=== PATIENT | male | born 1965 | race Caucasian/White ===

== ENCOUNTER → 2018-10-16 09:42 | Outpatient (POV) | payer BC, SELFPAY | PROVIDERS: Visit Provider Dermatology | DX: Z00.00 Encounter for general adult medical examination without abnormal findings (principal) ==

== ENCOUNTER → 2019-03-29 09:34 | Outpatient (CLI) | payer BC, SELFPAY ==
--- NOTE | 2019-03-29 | CA_ITS ---
APPROVED REPORT Exam: Exercise Treadmill Technologist: Radha Tuttle, Ht: 5 ft 11 in Wt: 180 lbs BSA: 2.02 m2 HR: 65 bpm BP: 131/89 mmHg Rhythm: NSR,VENTRICULAR TRIGEMINY Medical History Medical History: Hyperlipidemia Medications: Lipitor,,,,, BaBY ASA,,,,, Allergies: No known drug allergies Cardiac Risk Factors: Hyperlipidemia, FHX of CAD Stress Test Details Test: Miguel HR Resting HR: 70 bpm Max Heart Rate (APMHR): 165 bpm Max HR Achieved: 179 bpm Target HR (85% APMHR): 140 bpm % of APMHR: 108 BP Resting BP: 131/89 mmHg Max BP: 166/77 mmHg Recovery BP: 166.0/77.0 mmHg ECG Resting ECG: NSR,VENTRICULAR BIGEMINY Clinical Reason for Termination: Dyspnea Exercise duration: 12:01 min Highest Stage Achieved: Exercise capacity: 12.8 METs Stress ECG Conclusion PVC'S,VENTRICULAR BIGEMINY-RECURRENY. VENTRICULAR COUPLETS. PAROXYSMAL SVT. MAX HEART RATE 179 BPM WHICH IS 120% OF PM FOR AGE. METS = 12.8. TEST STOPPED DUE TO LEG PAIN AND SOA. NO CHEST PAIN. PVC'S,VENTRICULAR BIGEMINY,COUPLETS AND PAROXYSMAL SVT. <1.5MM ST SEGMENT. ABNORMAL STRESS TEST. GOOD EXERCISE TOLERANCE. VENTRICULAR ECTOPY ABOVE. Test Summary RECOVERY 02:00 0.0 0.0 114 . . . . REST . . . . . . . Sitting REST 26:27 0.0 0.0 70 . 131/ 89 . . Stage 1 01:00 10.0 1.7 113 . . . . Stage 1 02:00 10.0 1.7 108 . . . . Stage 1 03:00 10.0 1.7 107 . . . . Stage 2 01:00 12.0 2.5 118 . . . . Stage 2 02:00 12.0 2.5 117 . . . . Stage 2 03:00 12.0 2.5 130 . 152/ 90 . . Stage 3 01:00 14.0 3.4 139 . . . . Stage 3 02:00 14.0 3.4 152 . . . . Stage 3 03:00 14.0 3.4 153 . . . . Stage 4 01:00 16.0 4.2 168 . . . . Stage 4 02:00 16.0 4.2 176 . . . . Stage 4 . . . . . . . Stage held Stage 4 03:00 16.0 4.2 179 . . . . Stage 4 . . . . . . . Stage resumed Stage 4 03:01 16.0 4.2 179 . . . Stop exercise at 12:01 RECOVERY 01:00 0.0 0.0 140 . . . . RECOVERY 02:00 0.0 0.0 114 . . . . RECOVERY 03:00 0.0 0.0 98 . 166/ 77 . . RECOVERY 04:00 0.0 0.0 100 . 166/ 77 . . RECOVERY 05:00 0.0 0.0 100 . 166/ 77 . . RECOVERY 06:00 0.0 0.0 99 . 166/ 77 . . RECOVERY 07:00 0.0 0.0 96 . 166/ 77 . . RECOVERY 08:00 0.0 0.0 91 . 166/ 77 . . RECOVERY 09:00 0.0 0.0 96 . 166/ 77 . . RECOVERY 09:15 0.0 0.0 100 . 166/ 77 . . Electronically signed by : Fish Craig, 03/29/2019 15:12:58
== END ==
PROVIDERS: PCP Family Medicine; Visit Provider Family Medicine
DX: R07.9 Chest pain, unspecified (principal); E78.00 Pure hypercholesterolemia, unspecified; Z82.49 Family history of ischemic heart disease and other diseases of the circulatory system
CPT/HCPCS: 93017

== ENCOUNTER → 2019-04-04 11:14 | Outpatient (CLI) | payer BC, SELFPAY | PROVIDERS: PCP Family Medicine; Visit Provider Family Medicine | DX: I47.1 Supraventricular tachycardia (principal); R00.8 Other abnormalities of heart beat | CPT/HCPCS: 93225; 93226 ==

== ENCOUNTER → 2019-04-17 09:31 | Outpatient (CLI) | payer BC, SELFPAY ==
--- NOTE | 2019-04-17 09:38 | CA_ITS ---
APPROVED REPORT EXAM: Comprehensive 2D, Doppler, and color-flow Echocardiogram Supervisor Game Farm: Kassie Barros CRT Ht: 5 ft 11 in Wt: 180lbs BSA: 2.02 BP: 131/89 mmHg Indications: SVT, TRIGEMINY 2D Dimensions LVOT 2.00 cm (M/F) 1.5-2.5 M-Mode Dimensions RVDd 2.60 cm (0.9-2.6) LA Diam 3.90 cm (1.9-4.0) LVDd 4.60 cm (3.5-5.7) Ao Diam 3.20 cm (2.0-3.7) LVDs 3.50 cm (3.5-5.7) AV Cusp 2.20 cm (1.5-2.6) IVSd 1.60 cm (0.6-1.1) PWd 0.60 cm (0.6-1.1) EF (Teich) 47.70% FS 23.90% EDV (Teich) 97.30 mL ESV (Teich) 50.90 mL LV Diastology E/A Ratio 1.60 MED E' 6.14 (< 7 cm/sec) E'/MED E' Ratio 14.40 (>14) LAT E' 9.36 (<10 cm/sec) E/LAT E' Ratio 9.40 (>14) Aortic Valve AoV Peak Chuy. 110.00 (50-130 cm/s) AO Peak GR. 5.00 mmHg Mitral Valve MV E Max Chuy. 88.40 (40-130 cm/s) MV A Velocity 55.80 (40-130 cm/s) E/A Ratio 1.60 Pulmonary Valve PA Accel Time 208.00 (>120 msec) Tricuspid Valve TR P. Velocity 223.00 cm/s RAP Estimate 10.00 mmHg RVSP 30.00 mmHg Left Ventricle Left atrium is normal size, left ventricle is normal size, left ventricle wall thickness is upper limit of the normal, there is preserved left ventricular systolic function, visually estimated ejection fraction 55% with no regional wall motion abnormality. Diastolic parameters are inconclusive. Right Ventricle Right atrium and right ventricular normal size and contractility. Aortic Valve Aortic valve is minimally thickened and fibrosed. Mitral Valve Mitral valve leaflets are minimally thickened, there is no mitral stenosis. There is mild mitral regurgitation. Tricuspid Valve Tricuspid valve is grossly normal, there is mild tricuspid regurgitation. Pulmonic Valve Pulmonic valve is poorly visualized. Great Vessels Aortic root is normal size. Pericardium No significant pericardial effusion noted. Conclusion 1. Left atrium is normal size, left ventricle is normal size, visually estimated ejection fraction 55% with no regional wall motion abnormality, diastolic parameters are inconclusive. 2. Mild mitral and tricuspid regurgitation. 3. No significant pericardial effusion noted. Electronically signed by : Aden Diane, 04/18/2019 13:24:04
== END ==
PROVIDERS: PCP Family Medicine; Visit Provider Family Medicine
DX: I47.1 Supraventricular tachycardia (principal); R00.8 Other abnormalities of heart beat
CPT/HCPCS: 93306

== ENCOUNTER 2019-11-05 11:56 | Emergency (ER) | payer BC, SELFPAY ==
[2019-11-05] VITALS (7 sets, daily range): BP systolic 131–166; BP diastolic 77–93; PULSE 44–87; RESP 12–18; TEMP 36.8; O2SAT 95–99; BMI 24.3
--- NOTE | 2019-11-05 12:00 | HMH.EDGENADL ---
ED Disposition Clinical Impression: Dislocation of left shoulder joint Qualifiers: Encounter type: initial encounter Qualified Code(s): S43.005A - Unspecified dislocation of left shoulder joint, initial encounter Disposition: Home, Self-Care Condition on Discharge: Good Instructions: DI for Shoulder Dislocation, DI for Moderate Sedation Additional Instructions: Sling and swath until orthopedic follow-up. Avoid raising left arm over your head until follow-up. Follow-up with orthopedics this week. Call for appointment. Ice and ibuprofen or Tylenol for pain. Referrals: Fish Aguirre MD [Primary Care Provider] - Aparna Roa MD [Physician] - - Critical Care Critical Care Time: No Attestation: On , the high probability of a clinically significant, sudden or life threatening deterioration of the following system(s) required my full and direct attention, intervention and personal management. The time I documented below is in addition to time spent performing reported procedures but includes the following listed in this critical care notation. Medical Decision Making - Sunny Inquiry Pt receiving controlled substance: Yes Sunny was queried for this patient: No Reason not queried -: Emergent pt cond-no time Risks and benefits of using a controlled substance: were not discussed with pt by me Vital Signs: 11/05/19 11:57 11/05/19 12:49 Pulse Rate [Right Radial] 87 70 Respiratory Rate 18 16 Blood Pressure [Right Arm] 138/82 166/93 H Blood Pressure Mean [Right Arm] 100 117 Blood Pressure Source [Right Arm] Automatic Cuff Blood Pressure Position [Right Arm] Sitting Supine 02 Sat by Pulse Oximetry 98 97 Oxygen Delivery Method Room Air Nasal Cannula Oxygen Flow Rate (LPM) 2 Orders (Tests/Meds): ED MEDICATIONS Discontinued Medications Generic Name Dose Route Start Last Admin Trade Name Freq PRN Reason Stop Dose Admin Hydromorphone HCl 1 mg 11/05/19 12:05 11/05/19 12:11 Dilaudid 2mg/Ml Syringe IV 11/05/19 12:06 1 mg ONCE ONE Administration Hydromorphone HCl 1 mg 11/05/19 12:11 11/05/19 12:12 Dilaudid 2mg/Ml Syringe IV 11/05/19 12:12 1 mg ONCE ONE Administration Ondansetron HCl 4 mg 11/05/19 12:05 11/05/19 12:11 Zofran 4mg/2ml Vial IV 11/05/19 12:06 4 mg ONCE ONE Administration ORDERS Category Date Time Status Shoulder XR left minimum 2 views [XR shoulder LT min 2V Exams 11/05/19 12:47 Taken ] Stat XR shoulder LT min 2V Stat Exams 11/05/19 12:04 Taken - Radiology Data #1 Image(s): Chest, Shoulder Image Reviewed: Yes I reviewed the patient's radiology image Chest: Left shoulder dislocation, otherwise negative, no pneumothorax Left shoulder: Anterior dislocation. Left shoulder postreduction: Nonunited ossicle at the distal clavicle, good reduction of dislocation, no acute fractures. - Reevaluation(s) Time: 13:03 Reevaluation #1: Awake, alert, drinking water. Has no pain at present. No headache. No neck pain. No back pain. Shoulder feels better. Neurovascular intact. General Adult HPI - General Chief complaint: Extremity Injury, Upper Stated complaint: left shoulder pain Time Seen by Provider: 11/05/19 12:00 - History of Present Illness HPI narrative: The patient complains of a left shoulder injury. He says some [place] fell 12 feet and hit him primarily on his left shoulder, which he felt a pop. He says when hit him in the head but he has no headache, no loss of consciousness, no neck pain. He says his back is beginning to hurt where he is bending over to hold his shoulder in a comfortable position, but he does not feel like he injured his back. Last oral intake was a pop tart at 8 AM. Denies numbness or weakness. No injury to chest or abdomen. - Related Data Home Medications Medication Instructions Recorded Confirmed aspirin 81 mg tablet,delayed 81 mg PO DAILY 05/27/19 07/01/19 release atenolol 25 mg
--- NOTE | 2019-11-05 12:04 | XR_ITS ---
PROCEDURE: XR SHOULDER LT MIN 2V CLINICAL INDICATION: injury left shoulder pain with deformity COMPARISON: No exams were available for comparison FINDINGS: The humeral head projects over the inferior lip of the glenoid consistent with anterior dislocation of the shoulder. There does appear to be flattening of the posterior humeral head suggesting a Hill-Sachs lesion although this is better seen on the post reduction view. There is degenerate change of the AC joint with spurring superiorly. IMPRESSION: Anterior dislocation left shoulder with probable Hill-Sachs lesion noted Dictated by: Dr. Abdias Pfeiffer MD 11/05/2019 13:[address] Abdias Pfeiffer MD in [place] 11/05/2019 13:13
--- NOTE | 2019-11-05 12:04 | XR_ITS ---
PROCEDURE: XR CHEST PORTABLE CLINICAL HISTORY: injury Two left shoulder with left shoulder pain COMPARISON: CXR2V XR chest 2V from 09/16/2018 FINDINGS: The cardiomediastinal silhouette and pulmonary vascularity are within normal limits. The lungs are clear without infiltrates, suspicious nodules, or pleural effusions. There monitor lines overlying the chest. There is apparent anterior dislocation left shoulder with the humeral head projecting over the inferior lip of the glenoid. There multilevel degenerate changes of the thoracic spine.. IMPRESSION: Dislocation left shoulder, no acute chest pathology noted Dictated by: Dr. Abdias Pfeiffer MD 11/05/2019 13:[address] Abdias Pfeiffer MD in [place] 11/05/2019 13:10
--- NOTE | 2019-11-05 12:18 | PC.NURSE ---
rad called for portable xray at 1210 and 1217
--- NOTE | 2019-11-05 12:47 | XR_ITS ---
PROCEDURE: XR SHOULDER LT MIN 2V CLINICAL INDICATION: post reduction COMPARISON: Left shoulder same date FINDINGS: There has been satisfactory reduction of the anterior shoulder dislocation. There is a scalloped defect posterior lateral humeral head consistent with a Hill-Sachs lesion. IMPRESSION: Satisfactory reduction anterior dislocation left shoulder Dictated by: Dr. Abdias Pfeiffer MD 11/05/2019 13:[address] Abdias Pfeiffer MD in [place] 11/05/2019 13:11
--- NOTE | 2019-11-05 13:30 | PC.NURSE ---
PT was moved to room 2 and placed on monitor with NC 2lpm. Pt was given 50mg of ketamine for sedation for left shoulder reduction. Pt medicated and tolerated procedure well. PT monitored until hr became fully alert. at bedside and consent was signed by the for the procedure. No issues before/during or after procedure.
== END 2019-11-05 13:45 | disposition home or self-care (01) ==
PROVIDERS: Emergency Provider Emergency Medicine; PCP Family Medicine
DX: S43.005A Unspecified dislocation of left shoulder joint, initial encounter (principal); W22.8XXA Striking against or struck by other objects, initial encounter; Y92.71 Barn as the place of occurrence of the external cause; I10 Essential (primary) hypertension; E78.5 Hyperlipidemia, unspecified; Z79.899 Other long term (current) drug therapy
CPT/HCPCS: 23650; 71045; 73030; 96374; 96375; 96376; 99152; 99284; J2405

== ENCOUNTER → 2019-11-21 08:30 | Outpatient (CLI) | payer BC, SELFPAY ==
--- NOTE | 2019-11-21 08:38 | XR_ITS ---
PROCEDURE: XR SHOULDER LT MIN 2V CLINICAL INDICATION: lt shoulder injury COMPARISON: XR SHOULDER LT MIN 2V from 11/05/2019 XR SHOULDER LT MIN 2V from 11/05/2019 FINDINGS: There is mild degenerative narrowing of the acromioclavicular and glenohumeral joints. There is no interval fracture, dislocation, or soft tissue abnormalities. IMPRESSION: Stable mild degenerative changes of the left shoulder joint Dictated by: Long Cadet 11/21/2019 09:38 Electronically signed by Long Cadet in [place] 11/21/2019 09:38
== END ==
PROVIDERS: PCP Family Medicine; Visit Provider Orthopaedic Surgery
DX: S43.005A Unspecified dislocation of left shoulder joint, initial encounter (principal)
CPT/HCPCS: 73030

== ENCOUNTER → 2020-01-06 08:00 | Outpatient (CLI) | payer BC, SELFPAY ==
--- NOTE | 2020-01-06 08:08 | CA_ITS ---
APPROVED REPORT EXAM: Comprehensive 2D, Doppler, and color-flow Echocardiogram Solar Energy Installation Manager: Dolly WilsonMAHAD Ht: 5 ft 11 in Wt: 185lbs BSA: 2.04 BP: 129/79 mmHg Indications: ARRHYTHMIA,BRADYCARDIA,PVC'S,BIGEMINY,HLD 2D Dimensions LVOT 2.02 cm (M/F) 1.5-2.5 M-Mode Dimensions RVDd 2.82 cm (0.9-2.6) LVDd 5.15 cm (3.5-5.7) LVDs 3.46 cm (3.5-5.7) IVSd 0.76 cm (0.6-1.1) PWd 0.93 cm (0.6-1.1) EF (Teich) 60.90% FS 32.80% EDV (Teich) 126.60 mL ESV (Teich) 49.50 mL LV Diastology E/A Ratio 1.21 Mitral Valve MV A Velocity 37.00 (40-130 cm/s) Left Ventricle Left atrium is mildly enlarged, left ventricle is normal size, visually estimated ejection fraction 55% with no regional wall motion abnormality. Diastolic parameters are inconclusive. Right Ventricle Right atrium and right ventricular normal size and contractility. Aortic Valve Aortic valve is minimally thickened and fibrosed, there is no aortic stenosis or aortic insufficiency. Mitral Valve Mitral valve is grossly normal, there is mild mitral regurgitation. Tricuspid Valve Tricuspid valve is grossly normal, there is mild tricuspid regurgitation, tricuspid regurgitation jet velocity is inadequate for calculation of the right ventricular systolic pressure. Pulmonic Valve Pulmonic valve is poorly visualized. Great Vessels Aortic root is normal size. Pericardium No significant pericardial effusion noted. Conclusion 1. Mildly enlarged left atrium, normal left ventricular size, visually estimated ejection fraction 55% with no regional wall motion abnormality, diastolic parameters are inconclusive. 2. Mild mitral and tricuspid regurgitation. 3. No significant pericardial effusion noted. Electronically signed by : Aden Diane, 01/06/2020 19:22:31
== END ==
LOC: RT 08:04
PROVIDERS: PCP Family Medicine; Visit Provider Internal Medicine Cardiovascular Disease
DX: I49.3 Ventricular premature depolarization (principal)
CPT/HCPCS: 93306

== ENCOUNTER → 2021-03-25 11:42 | Outpatient (CLI) | payer OTHER, SELFPAY | PROVIDERS: PCP Family Medicine; Visit Provider Nurse Practitioner Family | DX: R06.09 Other forms of dyspnea (principal); R42 Dizziness and giddiness; R00.1 Bradycardia, unspecified; I49.3 Ventricular premature depolarization; I49.8 Other specified cardiac arrhythmias; I49.9 Cardiac arrhythmia, unspecified | CPT/HCPCS: 93270 ==

== ENCOUNTER → 2021-04-14 09:23 | Outpatient (CLI) | payer OTHER, SELFPAY | PROVIDERS: Visit Provider Surgery | DX: Z20.822 Contact with and (suspected) exposure to COVID-19 (principal) ==

== ENCOUNTER → 2021-04-15 10:49 | Day surgery (SDC) | payer OTHER, SELFPAY ==
[2021-04-14 10:04] LABS: Coronavirus 19, PCR Not Detected (NotDetected); Influenza A, PCR Not Detected (NotDetected); Influenza B, PCR Not Detected (NotDetected)
[2021-04-15 11:07] VITALS: BP 147/84; PULSE 45; RESP 18; TEMP 36.4; O2SAT 98
== END ==
PROVIDERS: PCP Family Medicine; Visit Provider Surgery
PROC: 0DJD8ZZ Inspection of Lower Intestinal Tract, Via Natural or Artificial Opening Endoscopic (ICD-10-PCS; principal; 2021-04-15 12:30)
DX: Z53.9 Procedure and treatment not carried out, unspecified reason (principal)
CPT/HCPCS: C9803; U0003; U0005

== ENCOUNTER → 2021-04-23 11:55 | Outpatient (CLI) | payer OTHER, SELFPAY ==
[2021-04-23 12:52] LABS: Chloride 101 mmol/L (98-107); Sodium 137 mmol/L (136-145)
[2021-04-23 12:53] LABS: Potassium 4.8 mmoL/L (3.5-5.1)
[2021-04-23 12:55] LABS: Blood Urea Nitrogen 19 mg/dl (9-20); Estimated Glomerular Filt Rate 87 ml/min (>60); GFR (African American) 105 ML/MIN (>60)
[2021-04-23 12:56] LABS: Anion Gap 12.8 mEq/L (5-15); Calcium 9.5 mg/dl (8.4-10.2); Carbon Dioxide 28 mmol/L (22.0-30.0); Glucose 128 mg/dl (74-100)
== END ==
PROVIDERS: Visit Provider Physician Assistant
DX: I10 Essential (primary) hypertension (principal); I49.3 Ventricular premature depolarization
CPT/HCPCS: 36415; 80048

== ENCOUNTER → 2021-05-18 08:42 | Outpatient (CLI) | payer OTHER, SELFPAY | PROVIDERS: Visit Provider Surgery | DX: Z01.812 Encounter for preprocedural laboratory examination (principal); Z11.52 Encounter for screening for COVID-19; Z12.11 Encounter for screening for malignant neoplasm of colon | CPT/HCPCS: C9803; U0003; U0005 ==

== ENCOUNTER → 2021-05-20 07:34 | Day surgery (SDC) | payer OTHER, SELFPAY ==
[2021-05-17 13:24] VITALS: BMI 25.9
[2021-05-20 07:49] VITALS: BP 154/95; PULSE 37; RESP 18; TEMP 36.5; O2SAT 98
[2021-05-20 08:08] VITALS: BP 154/95; PULSE 37; RESP 18; TEMP 36.5; O2SAT 98
--- NOTE | 2021-05-20 08:12 | ECG_ITS ---
APPROVED REPORT Exam: Resting ECG HR:71 bpm ECG Measurements Heart Rate 71 AXES VT 162 P 44 QRSd 100 QRS -1 QT 414 T 41 QTc 449 Conclusion Sinus rhythm with frequent premature ventricular complexes in a pattern of bigeminy Possible Left atrial enlargement Incomplete right bundle branch block Borderline ECG Electronically signed by : Fish Craig MD 05/21/2021 12:37:46
--- NOTE | 2021-05-20 10:30 | FL_ITS ---
PROCEDURE: FL BARIUM ENEMA CLINICAL INDICATION: Screening COMPARISON: No exams were available for comparison FINDINGS: Senior Media Buyer exam is unremarkable. The colon is visualized from rectum to cecum. No annular constricting lesions or fixed polypoid filling defects are evident. There are few scattered colonic diverticula. No mucosal abnormalities apparent. IMPRESSION: Scattered colonic diverticula otherwise negative air-contrast barium enema. Dictated by: Brian Muller MD 05/20/2021 12:30 Brian Muller MD in [place] 05/20/2021 12:30
--- NOTE | 2021-05-20 11:22 | HMH.CNCARD ---
History of Present Illness Consult date: 05/20/21 Requesting physician: Shawn Vann Consult reason: pre-op evaluation Chief complaint: Abnormal ECG History of present illness: 55-year-old male presented to preop for colonoscopy this a.m. child life therapist revealed sinus rhythm with frequent PVCs and episode of bigeminy with incomplete right bundle branch block. Patient denied chest pain, tightness or pressure. Patient denies shortness of breath. Patient states he was last seen in cardiology office a few weeks ago with Dr. Diane. Medications were adjusted. Patient is currently on bisoprolol 2.5 mg daily due to ventricular ectopy. Patient had wore a 30-day event monitor which showed baseline sinus rhythm with PVCs, burden was 34%. Lowest heart rate was 50 bpm during sleeping hours. Majority of heart rate stayed in the 80s. Patient had been referred to Dr. George for ventricular tachycardia and ventricular bigeminy and trigeminy. Patient states he did see Dr. George and was evaluated a week ago. Patient states Dr. George stated he is not a candidate at this time for a ventricular ablation. Patient states he did have an echocardiogram done at [facility]. Patient states he has not heard the results of that echocardiogram. Patient did have normal coronaries in May 2019. Nonischemic ventricular arrhythmia- stable. Vital signs stable. Discussed with the patient that from a cardiac standpoint, he is cardiac cleared to have his colonoscopy this a.m. Patient states he is worried about undergoing sedation and therefore he wants to cancel his colonoscopy today. Advised patient to follow-up with Dr. George regarding his echocardiogram results and possible ablation. Patient also is to follow-up with Dr. Diane in 2 weeks. Echo:Conclusion (2019) 1. Mildly enlarged left atrium, normal left ventricular size, visually estimated ejection fraction 55% with no regional wall motion abnormality, diastolic parameters are inconclusive. 2. Mild mitral and tricuspid regurgitation. 3. No significant pericardial effusion noted. [facility] History I have reviewed the patient's past medical history: Yes Medical History: Reports:: Arrhythmia, Cancer (skin cancer), Heart Murmur, Hyperlipidemia, Hypertension Denies:: Diabetes Mellitus Type 1, Diabetes Mellitus Type 2, Internal Pacemaker, MRSA, Seizures *Have you ever received a pneumonia vaccine?: Yes *Have you received a flu vaccine this season?: Yes Other Surgeries: Yes: Cardiac Catheterization. No: Pacemaker Amputation: No Fractures: Yes (rt wrist) - *Social History Last grade of school completed: High school graduate Smoking Status: Never smoker Alcohol Intake: never Alcohol Intake Frequency:: a few times a month Substance Use Type: denies use *Occupational Status:: employed Housing: house Household Members: spouse *Travel in the last 8 weeks: None Family Hx:: Cancer, Heart Attack, Stroke Meds Home Medications Medication Instructions Recorded Confirmed Type aspirin 81 mg tablet,delayed 81 mg PO DAILY 05/27/19 05/20/21 History release atorvastatin 10 mg tablet 10 mg PO QHS tab 05/27/19 05/20/21 History multivitamin 1 tab PO DAILY 11/21/19 05/20/21 History Irbesartan 75 mg PO DAILY 05/17/21 05/20/21 History bisoproloL fumarate [Bisoprolol 2.5 mg PO QDAY 05/17/21 05/20/21 History Fumarate] Allergies Allergy/AdvReac Type Severity Reaction Status Date / Time No Known Allergies Allergy Verified 05/20/21 08:16 Exam Vital signs and Labs for Last 24 Hours: Temp Pulse Resp BP Pulse Ox 97.7 F 37 L 18 154/95 H 98 05/20/21 08:08 05/20/21 08:08 05/20/21 08:08 05/20/21 08:08 05/20/21 08:08 I & O for Last 24 hours: Intake & Output 05/17/21 05/18/21 05/19/21 05/20/21 23:59 23:59 23:59 23:59 Weight 186 lb - Constitutional no acute distress, average body habitus, cooperative - *Routine HEENT Exam Head: Present: nor
== END ==
PROVIDERS: PCP Family Medicine; Visit Provider Surgery
PROC: 0DJD8ZZ Inspection of Lower Intestinal Tract, Via Natural or Artificial Opening Endoscopic (ICD-10-PCS; principal; 2021-05-20 08:30)
DX: Z53.09 Procedure and treatment not carried out because of other contraindication (principal)
CPT/HCPCS: 74270; 93005

== ENCOUNTER → 2021-06-04 13:52 | Outpatient (CLI) | payer OTHER, SELFPAY ==
[2021-06-04 14:47] LABS: Alanine Aminotransferase 35 U/L (12-78); Albumin Level 4.5 g/dl (3.5-5.0); Alkaline Phosphatase 83 U/L (38-126); Aspartate Amino Transferase 31 U/L (17-59); Bilirubin,Direct 0.2 mg/dl (0.0-0.4); Bilirubin,Indirect 0.4 mg/dL (0.0-0.9); Bilirubin,Total 0.6 mg/dl (0.2-1.3); Bilirubin,Unconjugated 0.4 mg/dL (0.0-1.1); Chol/HDL Ratio 5.3 (1-3.5); Cholesterol 149 mg/dl (140-200); HDL Cholesterol 28 mg/dl (40-60); Total Protein,Serum 6.9 g/dl (6.3-8.2); Triglycerides 233 mg/dl (30-150); VLDL Cholesterol 47 mg/dL (0-40)
[2021-06-04 14:58] LABS: Direct LDL Cholesterol 103.21 mg/dL (100-129)
== END ==
PROVIDERS: PCP Family Medicine; Visit Provider Internal Medicine Cardiovascular Disease
DX: E78.2 Mixed hyperlipidemia (principal); I49.3 Ventricular premature depolarization; I49.8 Other specified cardiac arrhythmias; I49.9 Cardiac arrhythmia, unspecified
CPT/HCPCS: 36415; 80061; 80076

== ENCOUNTER → 2022-01-14 10:58 | Outpatient (CLI) | payer OTHER, SELFPAY ==
--- NOTE | 2022-01-14 11:04 | XR_ITS ---
FINAL REPORT CLINICAL HISTORY: RIGHT HIP PAIN..no trauma FINDINGS: RIGHT HIP Two views of the right hip with AP pelvis demonstrate no acute fracture or dislocation. There is mild degenerative change of the bilateral hips.. The visualized bony structures are well aligned. No soft tissue abnormality is seen. IMPRESSION: Mild degenerative changes with no acute bony abnormality. Reviewed, Interpreted and Dictated by Black Falcon III, MD Transcribed by Tracie Aviles Authenticated and [facility]
== END ==
PROVIDERS: PCP Family Medicine; Visit Provider Nurse Practitioner Family
DX: M25.551 Pain in right hip (principal)
CPT/HCPCS: 73502

== ENCOUNTER 2022-05-11 13:00 | Outpatient (RCR) | payer OTHER, SELFPAY | END 2022-05-11 13:05 | disposition home or self-care (01) | LOC: PT 13:00 | PROVIDERS: PCP Family Medicine; Visit Provider Family Medicine | DX: M25.551 Pain in right hip (principal) | CPT/HCPCS: 20560; 97033; 97110; 97112; 97140; 97163; 97164; 97530 ==

== ENCOUNTER 2022-09-16 14:00 | Outpatient (RCR) | payer OTHER, SELFPAY | END 2022-09-16 14:05 | disposition home or self-care (01) | LOC: PT 14:00 | PROVIDERS: PCP Family Medicine; Visit Provider Orthopaedic Surgery | DX: M75.122 Complete rotator cuff tear or rupture of left shoulder, not specified as traumatic (principal); M75.42 Impingement syndrome of left shoulder; M25.312 Other instability, left shoulder; M75.52 Bursitis of left shoulder | CPT/HCPCS: 97110; 97163 ==

== ENCOUNTER → 2022-09-20 10:23 | Outpatient (POV) | payer OTHER, SELFPAY | PROVIDERS: Visit Provider Dermatology | DX: Z00.00 Encounter for general adult medical examination without abnormal findings (principal) ==

== ENCOUNTER → 2023-02-20 01:10 | Outpatient (CLI) | payer OTHER, SELFPAY ==
[2023-02-20 19:05] LABS: Basophils % 0.3 % (0.1-2.0); Eosinophils # 0.1 K/mm3 (0.0-0.4); Hematocrit 42.9 % (42.0-52.0); Hemoglobin 13.5 g/dL (14.1-18.0); Lymphocytes # 1.5 K/mm3 (0.7-4.5); Lymphocytes % 17.8 % (10-50); Mean Corpuscular HGB Conc 31.5 g/dL (31.8-35.4); Mean Corpuscular Hemoglobin 30.7 pg (27.0-31.2); Mean Corpuscular Volume 97.4 fl (80-94); Mean Platelet Volume 9.3 fl (7.4-10.4); Monocytes # 0.5 K/mm3 (0.1-1.0); Monocytes % 5.5 % (1.7-9.3); Neutrophils # 6.2 K/mm3 (1.8-7.8); Neutrophils % 75.4 % (37.0-80.0); Platelet Count 284 K/mm3 (142-424); Red Cell Distribution Width 13.7 % (11.5-17.5); White Blood Count 8.2 K/mm3 (4.8-10.8)
[2023-02-20 19:16] LABS: Alanine Aminotransferase 32 U/L (12-78); Albumin Level 4.4 g/dl (3.5-5.0); Albumin/Globulin Ratio 1.6 (1.1-1.8); Alkaline Phosphatase 119 U/L (38-126); Anion Gap 13.2 mEq/L (5-15); Aspartate Amino Transferase 31 U/L (17-59); Blood Urea Nitrogen 19 mg/dl (9-20); Calcium 9.3 mg/dl (8.4-10.2); Carbon Dioxide 22 mmol/L (22.0-30.0); Chloride 102 mmol/L (98-107); Chol/HDL Ratio 4.6 (1-3.5); Cholesterol 148 mg/dl (140-200); Estimated Glomerular Filt Rate 99 ml/min (>60); GFR (African American) 120 ML/MIN (>60); Globulin 2.7 g/dL (1.3-3.2); Glucose 86 mg/dl (74-100); HDL Cholesterol 32 mg/dl (40-60); Potassium 4.2 mmoL/L (3.5-5.1); Sodium 133 mmol/L (136-145); Total Protein,Serum 7.1 g/dl (6.3-8.2); Triglycerides 117 mg/dl (30-150); VLDL Cholesterol 23 mg/dL (0-40)
[2023-02-20 19:26] LABS: Direct LDL Cholesterol 94.51 mg/dL (100-129)
[2023-02-20 19:32] LABS: 25-OH Vitamin D, Total 34.2 ng/mL (30-100)
[2023-02-20 19:45] LABS: Thyroid Stimulating Hormone 1.93 uIU/mL (0.465-4.68)
== END ==
PROVIDERS: PCP Student in an Organized Health Care Education/Training Program; Visit Provider Student in an Organized Health Care Education/Training Program
DX: R42 Dizziness and giddiness (principal); R53.83 Other fatigue; Z79.899 Other long term (current) drug therapy
CPT/HCPCS: 80053; 80061; 82306; 84443; 85025

== ENCOUNTER → 2023-02-27 07:55 | Outpatient (CLI) | payer OTHER, SELFPAY ==
--- NOTE | 2023-02-27 07:58 | CT_ITS ---
FINAL REPORT CLINICAL HISTORY: Headache, head injury COMPARISON: 09/16/2018 FINDINGS: Axial images of the head were obtained without contrast. Coronal reformatted images were also obtained.This study was performed with techniques to keep radiation doses as low as reasonably achievable (ALARA). Individualized dose reduction techniques using automated exposure control or adjustment of mA and/or kV according to the patient's size were employed. There is no evidence of intracranial hemorrhage or mass. The ventricular size is within normal limits. There is no evidence of shift of the midline structures. No abnormal extra axial fluid collection is identified. No skull abnormality is seen on the bone window images. A right frontal sinus osteoma is noted. IMPRESSION: No acute intracranial abnormality. Reviewed, Interpreted and Dictated by Black Falcon III, MD Transcribed by Suzette Leung Authenticated and . [facility]
== END ==
LOC: RAD 07:56
PROVIDERS: PCP Student in an Organized Health Care Education/Training Program; Visit Provider Student in an Organized Health Care Education/Training Program
DX: R42 Dizziness and giddiness (principal); S09.90XA Unspecified injury of head, initial encounter
CPT/HCPCS: 70450

== ENCOUNTER 2024-03-27 09:30 | Outpatient (CLI) | payer OTHER, SELFPAY ==
[2024-03-27 10:23] LABS: Basophils % 0.6 % (0.1-2.0); Eosinophils # 0.1 K/mm3 (0.0-0.4); Eosinophils % 1.9 % (0.1-12.0); Hemoglobin 13.9 g/dL (14.1-18.0); Lymphocytes # 1.6 K/mm3 (0.7-4.5); Lymphocytes % 25.8 % (10-50); Mean Corpuscular Volume 97.2 fl (80-94); Monocytes # 0.4 K/mm3 (0.1-1.0); Monocytes % 6.1 % (1.7-9.3); Neutrophils % 65.6 % (37.0-80.0); Platelet Count 277 K/mm3 (142-424); Red Blood Count 4.22 M/mm3 (4.60-6.20); Red Cell Distribution Width 14.1 % (11.5-17.5); White Blood Count 6.1 K/mm3 (4.8-10.8)
[2024-03-27 10:54] LABS: Albumin Level 4.2 g/dl (3.5-5.0); Chloride 105 mmol/L (98-107); Sodium 138 mmol/L (136-145)
[2024-03-27 10:55] LABS: Potassium 4.6 mmoL/L (3.5-5.1)
[2024-03-27 10:57] LABS: Alanine Aminotransferase 36 U/L (12-78); Alkaline Phosphatase 98 U/L (38-126); Anion Gap 13.6 mEq/L (5-15); Aspartate Amino Transferase 28 U/L (17-59); Bilirubin,Direct 0.2 mg/dl (0.0-0.4); Bilirubin,Indirect 0.5 mg/dL (0.0-0.9); Bilirubin,Total 0.7 mg/dl (0.2-1.3); Bilirubin,Unconjugated 0.6 mg/dL (0.0-1.1); Blood Urea Nitrogen 16 mg/dl (9-20); Calcium 9.4 mg/dl (8.4-10.2); Carbon Dioxide 24 mmol/L (22.0-30.0); Chol/HDL Ratio 4.5 (1-3.5); Cholesterol 159 mg/dl (140-200); Estimated Glomerular Filt Rate 86 ml/min (>60); GFR (African American) 104 ML/MIN (>60); Glucose 103 mg/dl (74-100); HDL Cholesterol 35 mg/dl (40-60); Total Protein,Serum 6.5 g/dl (6.3-8.2); Triglycerides 87 mg/dl (30-150); VLDL Cholesterol 17 mg/dL (0-40)
[2024-03-27 11:09] LABS: Direct LDL Cholesterol 108.02 mg/dL (100-129)
[2024-03-27 11:11] LABS: Free T4 (Free Thyroxine) 1.12 ng/dl (0.78-2.19)
== END 2024-03-27 23:59 | disposition home or self-care (01) ==
LOC: LAB 09:31
PROVIDERS: PCP Family Medicine; Visit Provider Physician Assistant
DX: I49.8 Other specified cardiac arrhythmias (principal); I49.9 Cardiac arrhythmia, unspecified; I49.3 Ventricular premature depolarization; R06.09 Other forms of dyspnea; E78.2 Mixed hyperlipidemia
CPT/HCPCS: 36415; 80048; 80061; 80076; 84439; 84443; 85025; 93225; 93227

== ENCOUNTER 2024-03-28 12:50 | Outpatient (CLI) | payer OTHER, SELFPAY ==
--- NOTE | 2024-03-28 13:00 | CA_ITS ---
APPROVED REPORT EXAM: Comprehensive 2D, Doppler, and color-flow Echocardiogram Animal Behaviorist: Manuela Gill, CAROLYN, RVS Ht: 5 ft 11 in Wt: 191lbs BSA: 2.07 BP: 147/80 mmHg Indications: ABN STRESS TEST, ABN EKG, Angina, SOB, HTN, Bigeminy PVC's 2D Dimensions Left Atrium 3.83 cm M: 3.0 - 4.0 EF AP4 67.50 % GL Strain -26.8 % M-Mode Dimensions RVDd 2.05 cm (0.9-2.6) LA Diam 3.83 cm (1.9-4.0) LVDd 5.83 cm (3.5-5.7) LVDs 3.30 cm (3.5-5.7) IVSd 1.25 cm (0.6-1.1) PWd 1.25 cm (0.6-1.1) EF (Teich) 73.80% EPSs 0.40 cm FS 43.40% EDV (Teich) 168.50 mL ESV (Teich) 44.10 mL LV Diastology E Decel Time 263 (160-240 msec) E/A Ratio 1.93 MED A' 12.70 cm/s LAT A' 8.90 cm/s Aortic Valve YARELI Index 0.98 cm2/m2 AoV Peak Chuy. 179.0 (50-130 cm/s) AO Peak GR. 12.80 mmHg AO Mean GR. 6.30 (<5 mmHg) AO VTI 36.4 (18-25 cm) YARELI (VTI) 2.07 (2.5-4.5 cm2) Mitral Valve MV A Velocity 43.0 (40-130 cm/s) E/A Ratio 1.93 Left Ventricle The left ventricle is normal size. The left ventricular systolic function is normal. The left ventricular ejection fraction is within the normal range. There is normal left ventricular wall thickness. There is normal LV segmental wall motion. The left ventricular diastolic function is normal. LVEF is 55%. Right Ventricle TheThe right ventricle is normal size. The right ventricular systolic function is normal. Atria Left atrium is mildly dilated. The right atrium size is normal. There is no Doppler evidence of interatrial shunt. Aortic Valve The aortic valve opens well. There is no aortic valvular stenosis. No aortic regurgitation is present. Mitral Valve The mitral valve is normal in structure. No evidence of mitral valve stenosis. Mild mitral valve regurgitation is present. Tricuspid Valve Tricuspid valve is grossly normal in structure and function. Trace tricuspid regurgitation. RVSP is normal. Pulmonic Valve The pulmonary valve is normal in structure. Trace pulmonic regurgitation. Great Vessels The aortic root is normal in size. The ascending aorta is not well visualized. IVC is normal in size and collapses >50% with inspiration. Pericardium There is no pericardial effusion. Other Information Study Quality: Fair Conclusion Normal biventricular systolic function. Mild LA dilation. Mild MR. Electronically signed by : Lizette Sandra MD 03/29/2024 12:04:23
== END 2024-03-28 23:59 | disposition home or self-care (01) ==
LOC: RT 12:53
PROVIDERS: PCP Family Medicine; Visit Provider Physician Assistant
DX: I49.3 Ventricular premature depolarization (principal); I49.8 Other specified cardiac arrhythmias; I20.89 Other forms of angina pectoris; R06.09 Other forms of dyspnea; E78.2 Mixed hyperlipidemia
CPT/HCPCS: 93306

== ENCOUNTER 2025-03-14 12:05 | Outpatient (CLI) | payer OTHER, SELFPAY ==
--- OUTSIDE RECORDS SUMMARY | 2025-03-14 12:08 | XMS_ITS | Clinical Summary ---
Author Organization [facility] Address [address] [place] [address] Care Team Providers Care Work Over Rig Operator Name Role Phone Fish Aguirre MD Primary Care Provider + Allergies No known active allergies Medications aspirin 81 MG EC tablet Take 1 tablet by mouth Daily. Active Multiple Vitamin (MULTI VITAMIN DAILY PO) Take by mouth. Activ e atorvastatin (LIPITOR) 20 MG tabletIndications: Hypercholesterolem ia Take 1 tablet by mouth Every Night. 90 tablet 3 05/01/20 23 Active meloxicam (MOBIC) 15 MG tabletIndications: Primary osteoarthritis of right hip 1 PO Daily with food. 90 tablet 1 05/02/20 23 Active Additional Information Patient not taking.Reported on 10/23/2024 doxycycline (VIBRAMYCIN) 100 MG capsuleIndications :Persistent cough,Acute URI Take 1 capsule by mouth 2 (Two) Times a Day. 20 capsule 12/07/19 24 Active Additional Information Patient not taking.Reported on 10/23/2024 bisoprolol (ZEBeta) 5 MG tabletIndications: PVC's (premature ventricular contractions) Take 1/2 (one-half) tablet by mouth once daily 90 tablet 12/12/19 24 Active Additional Information Patient taking differently: 5 mgOral Daily, Reported on 10/23/2024 irbesartan (AVAPRO) 75 MG tabletIndications: Primary hypertension Take 1 tablet by mouth once daily 90 tablet 01/02/20 24 Active diazePAM (Valium) 5 MG tablet Take 1 tablet by mouth 1 hour prior to procedure. 1 tablet 12/13/20 24 Active cetirizine (zyrTEC) 5 MG tablet Take 1 tablet by mouth Daily. Active Active Problems Problem Noted Date Diagnosed Date Primary hypertension 05/01/2023 Assessment & Plan (05/01/2023 10:12 AM EST): Hypertension is improving with treatment. Continue current treatment regimen. Blood pressure will be reassessed at the next regular appointment. Hypercholesterolemia 05/01/2023 Assessment & Plan (05/01/2023 10:12 AM EST): Lipid abnormalities are improving with treatment. Pharmacotherapy as ordered. Lipids will be reassessed in 1 year. Trochanteric bursitis of right hip 11/24/2022 Labral tear of long head of biceps tendon, left, subsequent encounter 08/09/2022 Nontraumatic complete tear of left rotator cuff 04/05/2022 Shoulder instability, left 04/05/2022 Bursitis of left shoulder 04/05/2022 Impingement syndrome of left shoulder 04/05/2022 PVC's (premature ventricular contractions) 08/06 Assessment & Plan (05/01/2023 10:13 AM EST): F/U Dr. George. Cont. Bisoprolol Encounters Date Type Department Care Team Description 01/28/2025 Refill [facility] [address] [place] [address] Fish Aguirre MD Hypercholesterolemia 01/10/2025 Documentation [facility] [address] [facility] [address] [place] [address] Soumya Templeton PA 01/10/2025 Telephone [facility] [address] [facility] [address] [place] [address] Soumya Templeton PA 01/02/2025 2:00 PM EDT - 01/02/2025 11:59 PM EDT Hospital Encounter [facility] [address] [facility] [address] [place] [id number] Soumya Templeton PA PVC's (premature ventricular contractions) Discharge Disposition: Home or Self Care 01/02/2025 Travel from Last 3 Months Family History Medical History Relation Name Comments Heart disease Father Danyelle Heart attack Mother E Heart disease Mother E Stroke Mother E Cancer Sister 1 Fátima Heart disease Sister 1 Fátima Stroke Sister 2 Relation Name Status Comments Father Danyelle Mother E Sister 1 Fátima Alive Sister 2 Alive Social History Tobacco Use Types Packs/Day Years Used Date Smoking Tobacco: Never Smokeless Tobacco: Former Snuff Quit: 08/06/1982 Tobacco Cessation:Counseling Given: Not Answered Alcohol Use Standard Drinks/Week Comments Yes 0 (1 standard drink = 0.6 oz pur e alcohol) Mainly N/A beer PHQ-2 Answer Date Recorded Retired PHQ-9: Brief Depression Severity Measure Score 0 05/01/2023 PHQ-2 Answer Date Recorded Retired PHQ-9: Brief Depression Severity Measure Score 0 12/07/2023 Sex and Gender Information Value Date Recorded Sex Assigned at Not on file Legal Sex Male 1:45 PM EST Gender Identity Not on file Sexual Orientation Not on file Last Filed Vital Signs Vital Sign Reading Time Taken Comments Blood Pressure 133/67 01/02/2025 2:46 PM EDT Pulse 54 10/23/2024 3:34 PM EDT Temperature 39.1 C (102.3 F) 12/07/2023 3:42 PM EDT Respiratory Rate 20 05/01/2023 8:53 AM EST Oxygen Saturation 96% 10/23/2024 3:34 PM EDT Inhaled Oxygen Concentration - - Weight 85.7 kg (188 lb 15 oz) 01/02/2025 2:46 PM EDT Height 180.3 cm (5' 10.98 ) 01/02/2025 2:46 PM E DT Body Mass Index 26.36 01/02/2025 2:46 PM EDT Plan of Treatment Upcoming Encounters Date Type Department Care Team (Late st Contact Info) Description 04/30/2025 1:45 PM EST Office Visit [facility] [address] [facility] [address] [place] [id number] Soumya Templeton PA [address] [facility] [address] [place] [address] Scheduled Procedures Name Priority Associated Diagnoses Date/Ti me ABLATION PVC PVC's (premature ventricular contractions) Health Maintenance Due Date Last Done Comments TDAP/TD VACCINES (1 - Tdap) 11/21/1982 COLOGUARD 11/21/2008 COLON CANCER SCREENING 5 YEA R SIGMOIDOSCOPY 11/21/2008 CT COLONOGRAPHY 11/21/2008 FECAL OCCULT BLOOD TEST 11/21/2008 FIT Testing (1 year) 11/21/2008 Pneumococcal Vaccine 50+ (1 of 1 - PCV) 11/21/2013 ZOSTER VACCINE (1 of 2) 11/21/2013 HEPATITIS C SCREENING 08/01/2019 ANNUAL PHYSICAL 05/01/2024 05/01/2023 LIPID PANEL 05/01/2024 05/01/2023, 03/08/2022 INFLUENZA VACCINE 12/27/2024 06/17/2023, , 04/17/2021 COLONOSCOPY 11/23/2032 11/23/2022 COLORECTAL CANCER SCREENING 11/23/2032 Procedures Procedure Name Priority Date/Time Associated Diagnosis Comments ECHO COMPLETE W/ DOPPLER AND COLOR FLOW Routine 01/02/2025 2:46 PM EDT PVC's (premature ventricular contractions) LIPID PANEL Routine 05/01/2023 9:31 AM EST Primary hypertension SCANNED - COLONOSCOPY 11/23/2022 from Last 3 Months or Most Recently Relevant to Health Maintenance Results * ECHO COMPLETE W/ DOPPLER AND COLOR FLOW (01/02/2025 2:46 PM EDT) Pathologist [facility] EF(MOD-bp) 72.6 % LVIDd 5.0 cm LVIDs 3.3 cm IVSd 0.80 cm LVPWd 0.80 cm FS 34.0 % IVS/LVPW 1.00 cm ESV(cubed) 35.9 ml LV Sys Vol (BSA corrected) 24.1 cm2 EDV(cubed) 125.0 ml LV Gary Vol (BSA corrected) 74.8 cm2 LV mass(C)d 135.8 grams LVOT area 3.1 cm2 LVOT diam 2.00 cm EDV(MOD-sp2) 110.0 ml EDV(MOD-sp4) 154.0 ml ESV(MOD-sp2) 25.6 ml ESV(MOD-sp4) 49.6 ml SV(MOD-sp2) 84.4 ml SV(MOD-sp4) 104.4 ml SVi(MOD-SP2) 41.0 ml/m2 SVi(MOD-SP4) 50.7 ml/m2 SVi (LVOT) 38.8 ml/m2 EF(MOD-sp2) 76.7 % EF(MOD-sp4) 67.8 % MV E max chuy 104.0 cm/sec MV A max chuy 70.0 cm/sec MV dec time 0.21 sec MV E/A 1.49 Med Peak E' Chuy 8.8 cm/sec Lat Peak E' Chuy 12.8 cm/sec Avg E/e' ratio 9.63 SV(LVOT) 79.8 ml RV Base 3.9 cm RV Mid 3.0 cm RV Length 7.9 cm TAPSE (>1.6) 3.1 cm RV S' 17.9 cm/sec LA dimension (2D) 3.9 cm LV V1 max 112.0 cm/sec LV V1 max PG 5.0 mmHg LV V1 mean PG 3.0 mmHg LV V1 VTI 25.4 cm Ao pk chuy 157.0 cm/sec Ao max PG 9.9 mmHg Ao mean PG 5.0 mmHg Ao V2 VTI 32.4 cm YARELI(I,D) 2.46 cm2 Dimensionless Index 0.78 (DI) MV max PG 9.5 mmHg MV mean PG 2.00 mmHg MV V2 VTI 50.0 cm MV P1/2t 78.0 msec MVA(P1/2t) 2.8 cm2 MVA(VTI) 1.60 cm2 MV dec slope 567.0 cm/sec2 PA acc time 0.14 sec PI end-d chuy 118.0 cm/sec Ao root diam 2.6 cm TR max chuy 193.9 cm/sec TR max PG 15.0 mmHg Echo EF Estimated 70.0 % Anatomical Region Laterality Modality Ultrasound Narrative 01/02/2025 5:06 PM EDT Left ventricular systolic function is normal. Estimated left ventricular EF = 70% Mild mitral regurgitation is present. Estimated right ventricular systolic pressure from tricuspid regurgitation is normal (<35 mmHg). Left Ventricle Left ventricular systolic function is normal. Estimated left ventricular EF = 70% Normal left ventricular cavity size and wall thickness noted. All left ventricular wall segments contract normally. Left ventricular diastolic function was indeterminate. Right Ventricle Normal right ventricular cavity size, wall thickness, systolic function and septal motion noted. Right Atrium Normal right atrial cavity size noted. Mitral Valve The mitral valve is structurally normal with no significant stenosis present. Mild mitral valve regurgitation is present. Tricuspid Valve The tricuspid valve is structurally normal with no significant stenosis present. Trace tricuspid valve regurgitation is present. Estimated right ventricular systolic pressure from tricuspid regurgitation is normal (<35 mmHg). Aortic Valve The aortic valve is structurally normal with no regurgitation or stenosis present. Pulmonic Valve The pulmonic valve is structurally normal with no significant stenosis present. There is trace pulmonic valve regurgitation present. Pericardium The pericardium is normal. There is no evidence of pericardial effusion. . Greater Vessels No dilation of the aortic root is present. No dilation of the sinuses of Valsalva is present. Wall Scoring Score Index: 1.00 The left ventricular wall motion is normal. Soumya VALENZUELA CV ECHO ORDERABLES Final Resul t * (ABNORMAL) Lipid Panel (05/01/2023 9:31 AM EST) Total Cholesterol 150 0 - 200 mg/dL [facility] Comment: Cholesterol Reference Ranges (U.S. Department of Health and Human Services ATP III Classifications) Desirable <200 mg/dL Borderline High 200-239 mg/dL High Risk >240 mg/dL Triglyceride Reference Ranges (U.S. Department of Health and Human Services ATP III Classifications) Normal <150 mg/dL Borderline High 150-199 mg/dL High 200-499 mg/dL Very High >500 mg/dL HDL Reference Ranges (U.S. Department of Health and Human Services ATP III Classifications) Low <40 mg/dl (major risk factor for CHD) High >60 mg/dl ('negative' risk factor for CHD) LDL Reference Ranges (U.S. Department of Health and Human Services ATP III Classifications) Optimal <100 mg/dL Near Optimal 100-129 mg/dL Borderline High 130-159 mg/dL High 160-189 mg/dL Very High >189 mg/dL Triglycerides 114 0 - 150 mg/dL [facility] HDL Cholesterol 33(L) 40 - 60 mg/dL [facility] VLDL Cholesterol Luis Armando 21 5 - 40 mg/dL [facility] LDL Chol Calc (NIH) 96 0 - 100 mg/dL [facility] Blood 05/01/2023 9:31 AM EST 05/01/2023 Narrative [facility] ([facility]) - 05/02/2023 3:07 AM EST Performed at: [address] [place] [id number] Office Administration Instructor: Gerardo Bansal MD, Phone: [phone] Patient Fasting: Y Fish Aguirre MD LAB BLOOD ORDERABLES Fin al Result [facility] ([facility] [address] [place] [address], [place] [phone] [facility] [address] [place] [address], [place] [phone] * SCANNED - COLONOSCOPY (11/23/2022) Aman Tavera MD CHART REVIEW TABS Final Result from Last 3 Months or Most Recently Relevant to Health Maintenance Insurance [facility] Care Teams Work Over Rig Operator Relationship Specialty Start Date End Date Fish Aguirre MD [address] [place] [id number] PCP - General Family Medicine 03/08/22
--- OUTSIDE RECORDS SUMMARY | 2025-03-14 12:08 | XMS_ITS | Encounter Summary ---
[facility] Address [address] [place] [id number] Care Team Providers Care Senior Data Analyst Name Role Phone Fish Aguirre MD Primary Care Provider + Reason for Visit * Reason Onset Date Comments Med Refill 01/28/2025 Encounter Details Date Type Department Care Team (Late st Contact Info) Description 01/28/2025 Refill [facility] [address] [place] [address] Fish Aguirre MD [address] [place] [address] Hypercholesterolemia Social History Tobacco Use Types Packs/Day Years Used Date Smoking Tobacco: Never Smokeless Tobacco: Former Snuff Quit: 08/06/1982 Alcohol Use Standard Drinks/Week Comments Yes 0 [...] on file Sexual Orientation Not on file documented as of this encounter Miscellaneous Notes * Telephone Encounter - Jacque Duong RegSched Rep - 02/03/2025 2:17 PM EDT RECORDING WHEN CALLING PATIENT STATED THAT THE NUMBER HAS EITHER BEEN CHANGED OR DISCONNECTED documented in this encounter Plan of Treatment Upcoming Encounters Date Type Department Care Team (Late st Contact Info) Description 04/30/2025 1:45 PM EST Office Visit [facility] [address] [facility] [address] [place] [address] Soumya Templeton PA [address] [facility] [address] [facility] [address] [place] [address] Scheduled Procedures Name Priority Associated Diagnoses Date/Ti me ABLATION PVC PVC's (premature ventricular contractions) documented as of this encounter Visit Diagnoses Diagnosis Hypercholesterolemia Pure hypercholesterolemia documented in this encounter Care Teams Senior Data Analyst Relationship Specialty Start Date End Date Fish Aguirre MD [address] [place] [address] PCP - General Family Medicine 03/08/22 documented as of this encounter
--- NOTE | 2025-03-14 12:09 | XR_ITS ---
FINAL REPORT CLINICAL HISTORY: L shoulder pain,,pain after throwing hay COMPARISON: 11/21/2019 FINDINGS: LEFT SHOULDER 3 views of the left shoulder were obtained. There is no acute fracture or dislocation. There are moderate degenerative changes of the acromioclavicular and glenohumeral joint. Visualized joint spaces are normally aligned. Soft tissues are unremarkable. IMPRESSION: No acute bony abnormality. Reviewed, Interpreted and Dictated by Edvin Murphy MD Transcribed by Radha Esparza Authenticated and [facility]
== END 2025-03-14 23:59 | disposition home or self-care (01) ==
LOC: RAD 12:06
PROVIDERS: PCP Family Medicine; Visit Provider Student in an Organized Health Care Education/Training Program
DX: M19.012 Primary osteoarthritis, left shoulder (principal)
CPT/HCPCS: 73030